=== PATIENT | male | born 1965 | race African-American/Black ===

== ENCOUNTER 2019-01-21 23:44 | Emergency (ER) | payer MEDICAID ==
[~2019-01-21] VITALS: Ht 190.5 cm; Wt 104.3 kg
--- NOTE | 2019-01-22 00:10 | NUR ---
PT B[facility]RA FROM [facility] S/P WITNESSED SYNCOPAL EPISODE. PT DENIES SOB, CP, N/V. PT AAOX4, RR EVEN AND UNLABORED, SKIN WARM AND INTACT. NO ACUTE DISTRESS NOTED AT THIS TIME. PT PLACED ON CONTINIOUS MONITOR AND PULSE OX WILL CONTINUE TO MONITOR.
--- NOTE | 2019-01-22 00:17 | NUR ---
IV INITIAED RIGHT FOREARM 18G, LABS DRAWN FROM SITE, IGNITER CAPPER AT BEDSIDE FOR COLLECTION.
--- NOTE | 2019-01-22 00:18 | NUR ---
RADIOLOGY AT BEDSIDE FOR CXR
[2019-01-22] MEDS ORDERED: IV NS 0.9% 1,000 ML BAG IV ONE (00:30)
[2019-01-22 00:51] LABS: BASOPHILS % (AUTO) 0.4 % (0.0-2.0); EOSINOPHILS % (AUTO) 5.9 % (0.0-6.0); HEMATOCRIT 41 % (39-51); HEMOGLOBIN 13.8 g/dL (13.5-17.5); LYMPHOCYTES # (AUTO) 2.3 /CMM (0.8-4.8); LYMPHOCYTES % (AUTO) 42.5 % (20.0-44.0); MEAN CORPUSCULAR HGB CONC 34 g/dl (31.0-36.0); MEAN CORPUSCULAR VOLUME 97 fL (80-96); MONOCYTES # (AUTO) 0.5 /CMM (0.1-1.30); MONOCYTES % (AUTO) 8.4 % (2.0-12.0); NEUTROPHILS # (AUTO) 2.4 /CMM (1.8-8.9); NEUTROPHILS % (AUTO) 42.8 % (43.0-81.0); PLATELET COUNT (AUTO) 169 /CMM (150-450); RED BLOOD CELL COUNT(AUTO) 4.19 MIL/uL (4.5-6.0); WHITE BLOOD COUNT (AUTO) 5.5 K/uL (4.3-11.0)
--- NOTE | 2019-01-22 01:25 | NUR ---
PT UNABLE TO PROVIDE URINE SAMPLE AT THIS TIME. ER AWARE
[2019-01-22 01:28] LABS: CALCIUM, SERUM 8.8 mg/dL (8.5-10.1); CARBON DIOXIDE 26 mmol/L (21-32); CHLORIDE 104 mmol/L (98-107); CREATININE 1.7 mg/dL (0.6-1.3); GLUCOSE 278 mg/dL (74-106); POTASSIUM 4.1 mmol/L (3.5-5.1); SODIUM SERUM 140 mmol/L (136-145); UREA NITROGEN, BLOOD 17 mg/dL (7-18)
[2019-01-22 01:33] LABS: ALANINE AMINOTRANSFERASE 34 U/L (12-78); ALBUMIN 3.8 g/dL (3.4-5.0); ALKALINE PHOSPHATASE 80 U/L (46-116); ASPARTATE AMINOTRANSFERASE 13 U/L (15-37); BILIRUBIN,DIRECT 0.1 mg/dL (0.0-0.2); BILIRUBIN,TOTAL 0.3 mg/dL (0.2-1.0)
--- NOTE | 2019-01-22 01:55 | NUR ---
Patient discharged to home in stable condition. Written and verbal after care instructions given. Patient verbalizes understanding of instruction.IV removed. Catheter intact and site benign. Pressure and 4x4 applied to site. No bleeding noted. PT ambulatory with a steady gait
[2019-01-22 01:57] VITALS: BP 108/65
== END 2019-01-22 01:58 | disposition home or self-care (01) ==
LOC: ER 23:46
DX: I95.9 Hypotension, unspecified (principal); R55 Syncope and collapse; E11.9 Type 2 diabetes mellitus without complications; R56.9 Unspecified convulsions; Z88.0 Allergy status to penicillin
CPT/HCPCS: 36415; 71045-TC; 80048-TC; 80076-TC; 84484-TC; 85025-TC; 85730-TC; 86850-TC; J7030